=== PATIENT | male | born 1975 | race Caucasian/White ===

== ENCOUNTER 2018-05-12 10:33 | Outpatient (CLI) | payer MEDICAID, SELFPAY ==
--- NOTE | 2018-05-12 12:57 | DI.RAD_ITS ---
SYMPTOMS/DIAGNOSIS: EPIGASTRIC DISCOMFORT, R10.13 PA AND LATERAL CHEST: The heart is normal in size. The lungs are clear. The mediastinal structures and pleura appear intact. CONCLUSION: Normal chest. No evidence of acute cardiopulmonary disease.
== END 2018-05-12 10:53 ==
PROVIDERS: PCP Physician Assistant Medical; Visit Provider Physician Assistant Medical
DX: R10.13 Epigastric pain (principal)
CPT/HCPCS: 71046

== ENCOUNTER 2021-01-17 18:09 | Outpatient (REF) | payer MEDICAID, SELFPAY ==
[2021-01-17 20:38] LABS: ALT 73 U/L (16-63); AST 43 U/L (15-37); Albumin 4.4 g/dL (3.4-5.0); Alkaline Phosphatase 50 U/L (46-116); BUN 19 mg/dL (7-18); Bilirubin, Total 0.5 mg/dL (0.2-1.0); CO2 27.9 mmol/L (21.0-32.0); CREATININE 1.3 mg/dL (0.70-1.30); Calcium 9.7 mg/dL (8.5-10.1); Calculated LDL 138 mg/dL (<100); Chloride 98 mmol/L (98-107); Cholesterol 211 mg/dL (<200); Estimated GFR 59.17 (mL/min/1.73m2); Glucose 97 mg/dL (74-106); HDL Cholesterol 54 mg/dL (40-60); Total Protein 7.2 g/dL (6.4-8.2); Triglyceride 98 mg/dL (<150)
[2021-01-17 20:44] LABS: Anion Gap 13.1 mmol/L (3-11); Potassium 4.1 mmol/L (3.5-5.1); Sodium 139 mmol/L (136-145)
[2021-01-18 21:53] LABS: Hemoglobin A1C 5.1 % (<5.7)
== END 2021-01-17 18:10 | disposition home or self-care (01) ==
LOC: NCHCN 18:09
PROVIDERS: PCP Physician Assistant Medical; Visit Provider Physician Assistant Medical
DX: R03.0 Elevated blood-pressure reading, without diagnosis of hypertension (principal); Z00.8 Encounter for other general examination
CPT/HCPCS: 80053; 80061; 83036

== ENCOUNTER 2021-03-07 18:02 | Outpatient (REF) | payer MEDICAID, SELFPAY ==
[2021-03-07 20:26] LABS: Abs Immature Grans 0.01 10^3/uL (0.0-0.06); Absolute Basophil Count 0.03 10^3/uL (0.0-0.2); Absolute Eosinophil Count 0.29 10^3/uL (0.0-0.7); Absolute Lymphocyte Count 1.51 10^3/uL (1.2-3.4); Absolute Monocyte Count 0.53 10^3/uL (0.1-0.8); Absolute Neutrophil Count 3.78 10^3/uL (1.2-6.7); Basophils % 0.5; Eosinophils % 4.7; HCT 51.3 % (40.0-50.0); Immature Grans % 0.2; Lymphocytes % 24.6; MCHC 33.1 % (32.0-36.0); MCV 84.5 fL (80-95); MPV 12.5 fL (8.0-11.0); Monocytes % 8.6; Neutrophils % 61.4; Nucleated RBC 0 %; Platelet Count 189 10^3/uL (130-400); RBC 6.07 10^6/uL (4.36-5.78); RDW 12.9 % (11.8-14.1); RDW-SD 39.9 fL; WBC 6.15 10^3/uL (4.4-10.8)
[2021-03-07 20:41] LABS: ALT 49 U/L (16-63); AST 27 U/L (15-37); Albumin 4.3 g/dL (3.4-5.0); Alkaline Phosphatase 46 U/L (46-116); Anion Gap 13.1 mmol/L (3-11); BUN 17 mg/dL (7-18); Bilirubin, Total 0.4 mg/dL (0.2-1.0); CO2 23.9 mmol/L (21.0-32.0); Chloride 103 mmol/L (98-107); Glucose 113 mg/dL (74-106); Potassium 4.1 mmol/L (3.5-5.1); Sodium 140 mmol/L (136-145); Total Protein 7.1 g/dL (6.4-8.2)
[2021-03-07 20:42] LABS: Anisocytosis 1+; Diff Comment Agrees w/ Instrument
[2021-03-07 20:43] LABS: Tear Drop Cells 2+
[2021-03-08 18:29] LABS: Hepatitis A Antibody IgM Negative (Negative); Hepatitis B Core Antibody Negative (Negative); Hepatitis B surface Ag Negative (Negative); Hepatitis C Ab w Rflx HCV PCR Negative (Negative)
== END 2021-03-07 18:03 | disposition home or self-care (01) ==
LOC: NCHCN 18:02
PROVIDERS: PCP Physician Assistant Medical; Visit Provider Physician Assistant Medical
DX: I10 Essential (primary) hypertension (principal); R79.89 Other specified abnormal findings of blood chemistry
CPT/HCPCS: 80053; 86704; 86709; 86803; 87340; 85025

== ENCOUNTER 2021-09-05 18:25 | Outpatient (REF) | payer MEDICAID, SELFPAY ==
[2021-09-05 20:33] LABS: ALT 83 U/L (16-63); AST 52 U/L (15-37); Albumin 4.6 g/dL (3.4-5.0); Alkaline Phosphatase 54 U/L (46-116); Anion Gap 15.4 mmol/L (3-11); BUN 26 mg/dL (7-18); Bilirubin, Total 0.5 mg/dL (0.2-1.0); CO2 20.6 mmol/L (21.0-32.0); CREATININE 1.4 mg/dL (0.70-1.30); Calcium 9.8 mg/dL (8.5-10.1); Chloride 100 mmol/L (98-107); Estimated GFR 54.09 (mL/min/1.73m2); Glucose 95 mg/dL (74-106); Potassium 4.3 mmol/L (3.5-5.1); Sodium 136 mmol/L (136-145)
== END 2021-09-05 18:26 | disposition home or self-care (01) ==
LOC: NCHCN 18:25
PROVIDERS: PCP Physician Assistant Medical; Visit Provider Physician Assistant Medical
DX: R79.89 Other specified abnormal findings of blood chemistry (principal)
CPT/HCPCS: 80053

== ENCOUNTER 2022-10-01 13:33 | Outpatient (REF) | payer MEDICAID, SELFPAY ==
[2022-10-01 15:00] LABS: HCT 48.4 % (40.0-50.0); HGB 16.2 g/dL (13.5-17.5); MCH 28.5 pg (27.0-33.0); MCHC 33.5 % (32.0-36.0); MCV 85 fL (80-95); MPV 12.3 fL (8.0-11.0); Platelet Count 189 10^3/uL (130-400); RBC 5.68 10^6/uL (4.36-5.78); RDW 12.9 % (11.8-14.1); RDW-SD 39.8 fL; WBC 5.79 10^3/uL (4.4-10.8)
[2022-10-01 15:20] LABS: ALT 52 U/L (16-63); AST 37 U/L (15-37); Albumin 4.5 g/dL (3.4-5.0); Alkaline Phosphatase 52 U/L (46-116); Anion Gap 7.9 mmol/L (3-11); BUN 22 mg/dL (7-18); Bilirubin, Total 0.6 mg/dL (0.2-1.0); CO2 27.1 mmol/L (21.0-32.0); CREATININE 1.5 mg/dL (0.70-1.30); Chloride 102 mmol/L (98-107); Estimated GFR 56.72 (mL/min/1.73m2); Glucose 98 mg/dL (74-106); Potassium 4.4 mmol/L (3.5-5.1); Sodium 137 mmol/L (136-145); TSH (W/Ref FT4) 3.04 uIU/mL (0.36-3.74); Total Protein 7.6 g/dL (6.4-8.2)
[2022-10-01 15:28] LABS: Hemoglobin A1C 5.1 % (<5.7)
[2022-10-06 16:43] LABS: Testosterone, Free 6.58 ng/dL (4.26-16.4); Testosterone, Total 135 ng/dL (240-950)
== END 2022-10-01 13:34 | disposition home or self-care (01) ==
LOC: NCHCN 13:33
PROVIDERS: PCP Physician Assistant Medical; Visit Provider Physician Assistant Medical
DX: K76.0 Fatty (change of) liver, not elsewhere classified (principal); E66.9 Obesity, unspecified
CPT/HCPCS: 80053; 84402; 84403; 85027; 83036; 84443

== ENCOUNTER 2023-05-09 15:07 | Outpatient (REF) | payer MEDICAID, SELFPAY ==
[2023-05-09 15:26] LABS: HCT 56.1 % (40.0-50.0); HGB 18.2 g/dL (13.5-17.5); MCH 27.8 pg (27.0-33.0); MCHC 32.4 % (32.0-36.0); MCV 86 fL (80-95); MPV 12.6 fL (8.0-11.0); Platelet Count 167 10^3/uL (130-400); RBC 6.55 10^6/uL (4.36-5.78); RDW 13.1 % (11.8-14.1); RDW-SD 40.4 fL; WBC 4.23 10^3/uL (4.4-10.8)
[2023-05-09 15:38] LABS: ALT 154 U/L (16-63); AST 86 U/L (15-37); Alkaline Phosphatase 57 U/L (46-116); Anion Gap 9.4 mmol/L (3-11); BUN 14 mg/dL (7-18); Bilirubin, Total 0.5 mg/dL (0.2-1.0); CO2 25.6 mmol/L (21.0-32.0); CREATININE 1.2 mg/dL (0.70-1.30); Calcium 9.5 mg/dL (8.5-10.1); Chloride 103 mmol/L (98-107); Estimated GFR 73.67 (mL/min/1.73m2); Glucose 101 mg/dL (74-106); Sodium 138 mmol/L (136-145); Total Protein 7.5 g/dL (6.4-8.2)
[2023-05-13 16:06] LABS: Ferritin 175 ng/mL (26-388)
== END 2023-05-09 15:08 | disposition home or self-care (01) ==
LOC: NCHCN 15:07
PROVIDERS: PCP Physician Assistant Medical; Visit Provider Physician Assistant Medical
DX: K76.0 Fatty (change of) liver, not elsewhere classified (principal)
CPT/HCPCS: 80053; 85027; 82728

== ENCOUNTER → 2023-05-14 03:07 | Outpatient (CLI) | payer MEDICAID, SELFPAY ==
--- NOTE | 2023-05-14 | DI.US_ITS ---
Exam(s) US ABDOMEN LIMITED EXAM: US ABDOMEN LIMITED CLINICAL HISTORY: STEATOSIS OF LIVER,K76.0 TECHNIQUE: Ultrasound abdomen performed using standard protocol. COMPARISON: No exams were available for comparison FINDINGS: PANCREAS: Normal where visualized. LIVER: There is increased echogenicity of the liver suggesting hepatic steatosis. Hepatopetal flow i n the Portal Vein. The liver measures in 19.1 cm length. No evidence of a hepatic mass. GALLBLADDER: No evidence of cholelithiasis. No evidence of wall thickening. No pericholecystic fluid identified. BILIARY SYSTEM: Common bile duct measures < 7 mm. No intrahepatic biliary ductal dilation. EPPERSON'S SIGN: Negative. RIGHT KIDNEY: Kidney is normal in size. No evidence of renal calculi. No evidence of hydronephrosis. No renal mass or cyst identified. ASCITES: None seen. IMPRESSION: Hepatic steatosis and hepatomegaly. DATA REPOSITORY:
== END ==
PROVIDERS: PCP Physician Assistant Medical; Visit Provider Physician Assistant Medical
DX: K76.0 Fatty (change of) liver, not elsewhere classified (principal); R16.0 Hepatomegaly, not elsewhere classified
CPT/HCPCS: 76705

== ENCOUNTER 2023-11-04 18:58 | Outpatient (REF) | payer MEDICAID, SELFPAY ==
[2023-11-04 19:56] LABS: ALT 110 U/L (16-63); AST 91 U/L (15-37); Albumin 4.3 g/dL (3.4-5.0); Alkaline Phosphatase 47 U/L (46-116); Bilirubin, Direct 0.3 mg/dL (0.0-0.2); Bilirubin, Total 1.34 mg/dL (0.2-1.0); Total Protein 7.6 g/dL (6.4-8.2)
== END 2023-11-04 18:59 | disposition home or self-care (01) ==
LOC: NCHCN 18:58
PROVIDERS: PCP Physician Assistant Medical; Visit Provider Physician Assistant Medical
DX: K76.0 Fatty (change of) liver, not elsewhere classified (principal)
CPT/HCPCS: 80076

== ENCOUNTER 2024-05-31 16:31 | Outpatient (REF) | payer MEDICAID, SELFPAY ==
[2024-05-31 15:32] LABS: Abs Immature Grans 0.01 10^3/uL (0.0-0.06); Absolute Basophil Count 0.03 10^3/uL (0.0-0.2); Absolute Eosinophil Count 0.14 10^3/uL (0.0-0.7); Absolute Lymphocyte Count 1.36 10^3/uL (1.2-3.4); Absolute Monocyte Count 0.41 10^3/uL (0.1-0.8); Absolute Neutrophil Count 2.79 10^3/uL (1.2-6.7); Basophils % 0.6 %; HCT 46.4 % (40.0-50.0); HGB 15.9 g/dL (13.5-17.5); Immature Grans % 0.2 %; Lymphocytes % 28.7 %; MCH 28.4 pg (27.0-33.0); MCHC 34.3 % (32.0-36.0); MCV 83 fL (80-95); MPV 11.9 fL (8.0-11.0); Monocytes % 8.6 %; Neutrophils % 58.9 %; Platelet Count 164 10^3/uL (130-400); RDW 14.6 % (11.8-14.1); RDW-SD 44.1 fL; WBC 4.74 10^3/uL (4.4-10.8)
[2024-05-31 15:49] LABS: Hemoglobin A1C 5.4 % (<5.7)
[2024-05-31 15:58] LABS: ALT 97 U/L (16-63); AST 58 U/L (15-37); Albumin 4.1 g/dL (3.4-5.0); Alkaline Phosphatase 57 U/L (46-116); BUN 12 mg/dL (7-18); Bilirubin, Total 0.6 mg/dL (0.2-1.0); CREATININE 1.1 mg/dL (0.70-1.30); Calcium 9.6 mg/dL (8.5-10.1); Calculated LDL 122 mg/dL (<100); Chloride 104 mmol/L (98-107); Cholesterol 228 mg/dL (<200); Estimated GFR 81.28 (mL/min/1.73m2); Glucose 108 mg/dL (74-106); HDL Cholesterol 43 mg/dL (>or=40); Potassium 4.5 mmol/L (3.5-5.1); Sodium 139 mmol/L (136-145); Total Protein 6.9 g/dL (6.4-8.2); Triglyceride 318 mg/dL (<150)
== END 2024-05-31 16:32 | disposition home or self-care (01) ==
LOC: NCHCN 16:31
PROVIDERS: PCP Physician Assistant Medical; Visit Provider Physician Assistant Medical
DX: K76.0 Fatty (change of) liver, not elsewhere classified (principal); E66.812 Obesity, class 2; Z68.37 Body mass index [BMI] 37.0-37.9, adult
CPT/HCPCS: 80053; 80061; 83036; 85025

== ENCOUNTER 2024-06-28 02:44 | Outpatient (CLI) | payer MEDICAID, SELFPAY ==
--- NOTE | 2024-06-28 | DI.US_ITS ---
Exam(s) US ABDOMEN LIMITED EXAM: US ABDOMEN LIMITED CLINICAL HISTORY: K76.0 Fatty(change of)liver, not elsewhere classified, Steatosis of liver TECHNIQUE: Ultrasound abdomen performed using standard protocol. COMPARISON: US US ABDOMEN LIMITED from 05/14/2023 FINDINGS: LIVER: Enlarged at 22 cm in length. Increased echogenicity, consistent with moderate steatosis. No focal liver lesions are seen. GALLBLADDER: No evidence of cholelithiasis. No evidence of wall thickening. No pericholecystic fluid identified. EPPERSON'S SIGN: Negative. BILIARY SYSTEM: No intrahepatic or extrahepatic biliary ductal dilation. Right KIDNEY: Normal size. No evidence of renal calculi. No evidence of hydronephrosis. No renal mas s or cyst identified. PANCREAS: Normal where visualized. ABDOMINAL AORTA AND IVC: Visualized portions normal caliber. ASCITES: None seen. IMPRESSION: Enlarged liver with moderate steatosis DATA REPOSITORY:
== END 2024-06-28 03:04 ==
LOC: DI 02:44
PROVIDERS: PCP Physician Assistant Medical; Visit Provider Physician Assistant Medical
DX: K76.0 Fatty (change of) liver, not elsewhere classified (principal)
CPT/HCPCS: 76705

== ENCOUNTER 2024-08-09 14:43 | Outpatient (CLI) | payer MEDICAID, SELFPAY ==
--- NOTE | 2024-08-09 14:50 | DI.RAD_ITS ---
Exam(s) XR CHEST 2V PA LATERAL EXAM: XR CHEST 2V PA LATERAL CLINICAL HISTORY: Acute cough, R05.1 TECHNIQUE: 2D digital imaging was performed. Two views. COMPARISON: CR XR CHEST 2V PA LATERAL from 05/12/2018 FINDINGS: HEART: Normal size. Aorta: Not dilated. PULMONARY VASCULATURE: Normal. MEDIASTINUM: Unremarkable. LUNGS: Clear. PLEURAL SPACE: No pleural effusion or pneumothorax. BONE:Unremarkable for age. SOFT TISSUES: Unremarkable. IMPRESSION: No acute abnormality. DATA REPOSITORY: RADIATION DOSE DELIVERED:
== END 2024-08-09 15:03 ==
LOC: DI 14:43
PROVIDERS: PCP Physician Assistant Medical; Visit Provider Physician Assistant Medical
DX: R05.1 Acute cough (principal)
CPT/HCPCS: 71046

== ENCOUNTER 2024-11-16 10:15 | Emergency (ER) | payer MEDICAID, SELFPAY ==
[2024-11-16 10:16] VITALS: BP 191/107; PULSE 89; RESP 15; TEMP 36.6; O2SAT 98
[2024-11-16] MEDS: Diph,Pertuss(Acell),Tet Vac/Pf 0.5 ML SYR IM (11:28)
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
--- NOTE | 2024-11-16 11:50 | DI.CT_ITS ---
Exam(s) CT FACIAL WO EXAM: CT FACIAL WO CLINICAL HISTORY: laceration right mandibular angle- FB?. TECHNIQUE: Imaging Protocol: Axial computed tomography images with coronal and sagittal reformatted images were created and reviewed COMPARISON: No exams were available for comparison FINDINGS: CT Face: Facial Bones: No definite fracture is noted in facial bones. Sinuses and Mastoids: There is opacification of the left sphenoid sinus. The remaining visualized paranasal sinuses and mastoid air cells are clear. Globes, extraocular muscles, optic nerves and retrobulbar fat: Normal. Upper aerodigestive tract: Normal. Mandible and bilateral temporomandibular joints: Normal. Soft tissues: There is a soft tissue laceration in the right neck overlying the region of the right parotid gland and extending inferiorly along the sternocleidomastoid muscle. There is infiltration of the fat noted. No focal fluid collection is seen to suggest an abscess. There is thickening of the right platysma. Small foci of subcutaneous air is seen. No radiopaque foreign bodies are seen at this time. Small lymph nodes are seen in the right neck which are likely reactive. IMPRESSION: 1. Skin laceration overlying the right parotid gland with infiltration with subcutaneous edema along the right neck. No focal fluid collection is seen. A few foci of subcutaneous air are noted in the wound. 2. No radiopaque foreign bodies are seen. CT is limited in its evaluation for a wooden foreign body. If there is continued clinical concern, ultrasound may be obtained. RADIATION DOSE DELIVERED: 995.82mGy.cm Total DLP 995.82mGy.cm Total DLP DATA REPOSITORY: All CT scans at this facility are submitted to the National Radiology Data Registry (NRDR) Dose Index Registry (DIR) with the [employer] ([employer]). RADIATION OPTIMIZATION: All CT scans at this facility use at least one of these dose optimization techniques: automated exposure control; mA and/or kV adjustment per patient size (includes targeted exams where dose is matched to clinical indication); or iterative reconstruction.
[2024-11-16] MEDS: Lidocaine 1% Pres-Free W/EPI 1/200,000 30 ML VIAL (13:41)
[2024-11-16 13:47] VITALS: BP 169/115
== END 2024-11-16 14:04 | disposition home or self-care (01) ==
PROVIDERS: Emergency Provider Physician Assistant; PCP Physician Assistant Medical
DX: S01.81XA Laceration without foreign body of other part of head, initial encounter (principal); V86.55XA Driver of 3- or 4- wheeled all-terrain vehicle (ATV) injured in nontraffic accident, initial encounter
CPT/HCPCS: 99284; 99283; 90471; 12052; 90715; 70486; J2004